=== PATIENT | male | born 1955 | race Caucasian/White ===

== ENCOUNTER 2018-03-22 09:16 | Emergency (ER) | payer OTHER ==
[~2018-03-22] VITALS: Ht 167.6 cm; Wt 79.4 kg
[~2018-03-22 09:16] MED LIST: AMOXICILLIN500 M2 PO; ASPIRIN EC81 M1 PO; ATORVASTATIN CA10 MG PO; ATORVASTATIN CA40 MG PO; CARVEDILOL6.25 M1 PO; COREG 12.5MG12.5 MG PO; COREG 6.256.25 MG PO; CRESTOR40 M2 PO; DIOVAN40 MG PO; ISOSORBIDE MONO60 M1 PO; LIPITOR80 M1 PO; LIPITOR80 MG PO; LISINOPRIL2.5 MG PO; MAGIC MOUTH WASH PO; MECLIZINE HCL25 MG PO; NYSTATIN100000 UNI PO; PLAVIX75 M1 PO; PRINIVIL 5MG5 MG PO; RANEXA500 M1 PO; SCOPOLAMINE1 EAC1 TOP; TOPCARE ASPIRIN81 MG PO; TRAMADOL HCL50 M1
--- NOTE | 2018-03-22 09:27 | ED GI/GU/ABDOMINAL COMPLAINT ---
History of Present Illness General Chief Complaint: Abdominal Pain/Flank Pain Stated Complaint: "PAIN" Source: patient, family, old records Exam Limitations: no limitations Vital Signs & Intake/Output Vital Signs & Intake/Output Vital Signs Date Time Temp Pulse Resp B/P B/P Pulse O2 O2 Flow FiO2 Mean Ox Delivery Rate 03/22 0924 97.7 93 18 133/89 95 Room Air Allergies Coded Allergies: No Known Allergies (12/26/17) Reconcile Medications Amoxicillin 500 MG CAPSULE 1 CAP PO 4XDAILY DENTAL ABSCESS (Reported) Aspirin (Ecotrin*) 81 MG TABLET.DR 1 TAB PO DAILY HEART HEALTH (Reported) Carvedilol 6.25 MG TABLET 1 TAB PO BID HEART (Reported) Clopidogrel Bisulfate (Plavix) 75 MG TABLET 1 TAB PO DAILY BLOOD THINNER ( Reported) Isosorbide Mononitrate (Isosorbide Mononitrate ER) 60 MG TAB.ER.24H 1 TAB PO DAILY HEART (Reported) Meclizine HCl 25 MG TABLET 1 TAB PO TIDPRN PRN dizziness Ranolazine (Ranexa) 500 MG TAB.ER.12H 1 TAB PO BID HEART (Reported) Rosuvastatin Calcium (Crestor) 40 MG TABLET 1 TAB PO QPM CHOLESTEROL ( Reported) Scopolamine 1 MG/3 DAY PATCH.TD.3 1 PATCH TOP Q72 PRN dizziness Tramadol HCl (Unknown Strength) TABLET (Unknown Dose) UNKNOWN (Reported) Valsartan (Diovan) 40 MG TABLET 0.5 TAB PO BID HEART (Reported) Triage Note: PT TO ER C/C ABD PAIN AND NAUSEA S/P UMBILICAL HERNIA REPAIR DONE AT [facility]. NO BM X 2 DAYS. DENIES URINARY S/S Triage Nurses Notes Reviewed? yes HPI: 62M PMH HTN, HLD, CAD s/p PCI, abdominal hernia repair 2 days ago on 03/20, presenting with progressively worsening periumbilical pain and obstipation. No BM since his surgery, though he is passing gas. He reports 8/10 periumbilical pain that does not radiate and is worse when bending over. He has tenderness above the surgical incision site. He also reports consistent diaphoresis for the past day. His surgeon is Dr. Toribio at [facility]. He is unable to keep any food down and vomits almost everything he tries to eat. He is able to drink and is making goodurine. He denies fever, chills, headache, stiff neck, chest pain, SOB, dysuria. Past History Travel History Traveled to [place] past 21 day No Medical History Any Pertinent Medical History? see below for history Neurological: dizziness EENT: PT REPORTS DIMINISHED HEARING Cardiovascular: CAD, hypertension, hyperlipidemia, [place] - JANUARY 2014 4 STENTS, 2013 [place] Respiratory: PLEURISY AT AGE 16 2014 SCAN SHOWED EARLY EMPHYSEMA PER PATIENT Gastrointestinal: NONE Hepatic: NONE Renal: nephrolithiasis, SPRING 2014 PT REPORTS STONE WAS UNTESTED Musculoskeletal: FX RT INDEX FINGER 2011 RESULTING IN LESS FEELING Psychiatric: NONE Endocrine: NONE Blood Disorders: NONE Cancer(s): NONE History of MRSA: No History of VRE: No History of CDIFF: No Tetanus Vaccine: 09/28/15 Surgical History Surgical History: 4 CARDIAC STENTS Psychosocial History Who do you live with Spouse Services at Home None What is your primary language Icelandic Tobacco Use: Quit >30 days ago Family History Family History, If Any: FATHER FH: hypertension FH: stroke MOTHER FH: epilepsy Hx Contributory? No Review of Systems Review of Systems Constitutional: Reports: no symptoms. EENTM: Reports: no symptoms. Respiratory: Reports: no symptoms. Cardiovascular: Reports: no symptoms. GI: Reports: no symptoms. Genitourinary: Reports: no symptoms. Musculoskeletal: Reports: no symptoms. Skin: Reports: no symptoms. Neurological/Psychological: Reports: no symptoms. Hematologic/Endocrine: Reports: no symptoms. Immunologic/Allergic: Reports: no symptoms. All Other Systems: Reviewed and Negative Physical Exam Physical Exam General Appearance: well developed/nourished, mild distress Head: atraumatic, normal appearance Eyes: Bilateral: normal appearance. Ears, Nose, Throat, Mouth: hearing grossly normal, moist mucous membrane Neck: normal inspection, supple, full range of motion Respiratory: normal breath sounds, no respiratory distress Cardiovascular: regular rate/rhythm Gastrointestinal: soft, supraumbilical tenderness, wound is clean and dry, no fluctuance or fluid collection, no erythema Rectal: deferred Back: normal inspection, normal range of motion Extremities: normal range of motion Neurologic/Psych: awake, alert, oriented x 3, normal mood/affect Skin: normal color, warm/dry Core Measures ACS in differential dx? No Sepsis Present: No Sepsis Focused Exam Completed? No Progress Differential Diagnosis: AAA, appendicitis, biliary colic, bowel obstruction, colon cancer, cholecystitis, diverticulitis, epididymitis, hernia, ischemic bowel, inflamm bowel dis, Cristine-Meliza tear, orchitis, pancreatitis, prostatitis , peptic ulcer, PUD/GERD, perforated viscous, pyelonephritis, SBO, STD, testicular torsion, ureterolithiasis, urinary retention, urethritis, UTI/pyelo Plan of Care: Orders Procedure Date/time Status LIPASE 03/22 924 Complete COMPREHENSIVE METABOLIC PANEL 03/22 924 Complete CBC WITHOUT DIFFERENTIAL 03/22 924 Complete Laboratory Tests 03/22/18 0945: Anion Gap 12, Estimated GFR > 60, BUN/Creatinine Ratio 15.0, Glucose 111 H, Calcium 9.7, Total Bilirubin 0.9, AST 20, ALT 24, Alkaline Phosphatase 65, Total Protein 7.4, Albumin 4.1, Globulin 3.3, Albumin/Globulin Ratio 1.2, Lipase 70, CBC w Diff NO MAN DIFF REQ, RBC 5.41, MCV 94.9 H, MCH 32.2 H, MCHC 33.9, RDW 13.4, MPV 9.2, Gran % 64.7, Lymphocytes % 18.5 L, Monocytes % 13.3 H, Eosinophils % 2.9, Basophils % 0.6, Absolute Granulocytes 5.1, Absolute Lymphocytes 1.5, Absolute Monocytes 1.1 H, Absolute Eosinophils 0.2, Absolute Basophils 0.1 Diagnostic Imaging: Viewed by Me: Radiology Read. Discussed w/RAD: Radiology Read. Radiology Impression: PATIENT: CHELA MAHARAJ PRESENT AGE: 62 PATIENT ACCOUNT NO: [id number] : 55 LOCATION: [facility] ORDERING PHYSICIAN: Vikki Davis MD SERVICE DATE: 03/22/18 EXAM TYPE : RAD - [id number] VIEWS EXAMINATION: ABDOMEN 2 VIEWS CLINICAL INFORMATION: Pain. Constipation. COMPARISON: None. TECHNIQUE: Supine and upright views of the abdomen are provided. FINDINGS: There are no dilated loops of small bowel. There are no air-fluid levels. There is no appendicolith. The visualized lung bases are clear. The osseous structures are unremarkable. IMPRESSION: Unremarkable bowel gas pattern. Initial ED EKG: none Departure Departure Disposition: HOME OR SELF CARE Condition: Stable Clinical Impression Primary Impression: Constipation Referrals: Morgan Davey MD (PCP/Family) Additional Instructions: Follow up with your surgeon on Saturday. If you stop passing gas and do not have any bowel movements, return to ER. Also return if any new or worsening symptoms. Keep the surgical site clean and dry. Departure Forms: Customer Survey General Discharge Information Prescriptions: Current Visit Scripts Polyethylene Glycol 3350 (Miralax) 1 PAC PO DAILY #30 PAC dissolve in water Bisacodyl (Women's Laxative) 4 TAB PO AD #10 TAB
[2018-03-22 09:56] LABS: ABSOLUTE BASOPHIL COUNT 0.1 /CUMM (0.0-0.2); ABSOLUTE EOSINOPHIL COUNT 0.2 /CUMM (0.0-0.7); ABSOLUTE GRANULOCYTE CT 5.1 /CUMM (1.4-6.5); ABSOLUTE LYMPH COUNT 1.5 /CUMM (1.2-3.4); ABSOLUTE MONOCYTE COUNT 1.1 /CUMM (0.10-0.60); BASOPHIL % 0.6 % (0.0-2.0); EOSINOPHIL % 2.9 % (0-5); GRANULOCYTE % 64.7 % (42.2-75.2); HEMATOCRIT 51.3 % (42-52); MEAN CORPUSCULAR HGB 32.2 PG (27.0-31.0); MEAN CORPUSCULAR HGB CONC 33.9 G/DL (33.0-37.0); MEAN CORPUSCULAR VOLUME 94.9 FL (80.0-94.0); MEAN PLATELET VOLUME 9.2 FL (7.4-10.4); PLATELET COUNT 183 /CUMM (130-400); RBC DISTRIBUTION WIDTH 13.4 % (11.5-14.5); RED BLOOD CELL CT 5.41 /CUMM (4.70-6.10); WHITE BLOOD CELL COUNT 7.9 /CUMM (4.8-10.8)
--- NOTE | 2018-03-22 10:47 | RADIOLOGY REPORT ---
EXAMINATION: ABDOMEN 2 VIEWS CLINICAL INFORMATION: Pain. Constipation. COMPARISON: None. TECHNIQUE: Supine and upright views of the abdomen are provided. FINDINGS: There are no dilated loops of small bowel. There are no air-fluid levels. There is no appendicolith. The visualized lung bases are clear. The osseous structures are unremarkable. IMPRESSION: Unremarkable bowel gas pattern.
[2018-03-22] MEDS ORDERED: MIRALAX17 G1 PO (11:21)
[2018-03-22] MEDS ORDERED: WOMEN'S LAXATIVE5 M1 PO (11:21)
[2018-03-22 11:26] VITALS: BP 133/87
== END 2018-03-22 11:29 ==
LOC: ERH 09:16
PROVIDERS: Internal Medicine
DX: K59.00 Constipation, unspecified (principal)
CPT/HCPCS: 74021